=== PATIENT | female | born 2005 | race Hispanic/Latino ===

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

== ENCOUNTER 2024-03-30 15:25 | Observation (INO) | payer BC, MEDICAID ==
[~2024-03-30] VITALS: Ht 154.9 cm; Wt 79.8 kg
[~2024-03-30 15:25] MED LIST changes: +ACET-2079 PO; +FERS325 PO; -METO-296 PO; -ONDA4TAB10 PO; -PHEN12S PR
[2024-03-30 15:26] VITALS: BP 118/57; PULSE 73; RESP 16; TEMP 98.4
[2024-03-30 16:41] LABS: APPEARANCE,URINE CLEAR (CLEAR); BILIRUBIN,URINE NEGATIVE (NEGATIVE); COLOR,URINE YELLOW (YELLOW); GLUCOSE, URINE (UA) NEGATIVE (NEGATIVE); KETONES,URINE 10 mg/dL (NEGATIVE); LEUKOCYTE ESTERASE ,URINE NEGATIVE Leu/uL (NEGATIVE); NITRATE,URINE NEGATIVE (NEGATIVE); OCCULT BLOOD,URINE NEGATIVE (NEGATIVE); PH,URINE 6.5 (5.0-8.0); PROTEIN,URINE 20 mg/dL (NEGATIVE)
[2024-03-30 16:43] LABS: ADD UA MICROSCOPIC YES
[2024-03-30 16:51] LABS: BACTERIA,URINE RARE /HPF (None Seen); MUCUS,URINE RARE LPF (None Seen); OTHER CASTS, URINE 1 /LPF (None Seen); RBC,URINE 0-1 /HPF (0-1); SQUAMOUS EPITHELIAL CELL,UR FEW /HPF (0-2)
[2024-03-30] MEDS: LACTATED RINGERS 1000ML IV PRN (17:07)
[2024-03-30 17:15] LABS: HEMATOCRIT 33.3 % (36-48); MEAN CORPUSCULAR HEMOGLOBIN 29.3 pg (27.0-33.0); MEAN CORPUSCULAR HGB CONC 33.3 g/dL (32.0-36.0); MEAN CORPUSCULAR VOLUME 87.9 fL (80-100); RED BLOOD CELL COUNT(AUTO) 3.79 MIL/uL (4.00-5.50); RED CELL DISTRIBUTION WIDTH 12.9 % (11.0-15.5); WHITE BLOOD COUNT (AUTO) 7.7 K/uL (4.8-10.8)
[2024-03-30 17:25] LABS: CREATININE 0.7 mg/dL (0.5-1.0); POTASSIUM 3.6 mmol/L (3.5-5.1)
[2024-03-30 17:30] LABS: ALBUMIN 2.6 g/dL (3.5-5.0); BILIRUBIN,TOTAL 0.5 mg/dL (0.2-1.0); TOTAL PROTEIN, SERUM 6.4 g/dL (6.0-8.3)
== END 2024-03-30 17:55 | disposition home or self-care (01) ==
LOC: EDH 15:25 → LDH 15:26 → EDH 15:34
PROVIDERS: ADMIT Obstetrics & Gynecology; ATTEND Obstetrics & Gynecology
DX: O21.2 Late vomiting of pregnancy (principal); O99.891 Other specified diseases and conditions complicating pregnancy; M54.9 Dorsalgia, unspecified; Z3A.28 28 weeks gestation of pregnancy
CPT/HCPCS: 36415; 59025; 80053; 81001; 85027; 96360; G0378; G0379; J7120